=== PATIENT | female | born 1965 | race Asian ===

== ENCOUNTER 2020-01-15 13:45 | Outpatient (CLI) | payer OTHER, SELFPAY ==
--- NOTE | ~2020-01-15 | XR_ITS ---
EXAMINATION: XR shoulder RT min 2V DATE: 01/15/2020 14:27 INDICATION: Right shoulder pain. TECHNIQUE: 5 views of right shoulder were obtained. COMPARISON: None. FINDINGS: Bone alignment is normal. No fracture. The glenohumeral joint is normal. There is mild acro mioclavicular joint osteoarthritis. IMPRESSION: 1. Mild right acromioclavicular joint osteoarthritis. Reviewed, dictated and finalized at location A.
--- NOTE | 2020-01-15 13:47 | ECG_ITS ---
Measurements Intervals [place] Rate: 79 P: 70 [place]: 158 QRS: 75 QRSD: 95 T: 58 QT: 370 QTc: 424 Interpretive Statements SINUS RHYTHM BASELINE WANDER- I, II, III, AVF, V1 NORMAL ECG Electronically Signed On 01-15-2020 14:20:12 CDT by Noah Samaniego D.O.
[2020-01-15 14:46] LABS: Thyroid Stimulating Hormone 1.21 uIU/mL (0.36-3.74)
== END 2020-01-15 13:46 | disposition home or self-care (01) ==
LOC: CHSCARD 13:47
PROVIDERS: PCP Nurse Practitioner Family; Visit Provider Nurse Practitioner Family
DX: R07.89 Other chest pain (principal); M25.511 Pain in right shoulder; E03.9 Hypothyroidism, unspecified
CPT/HCPCS: 36415; 73030; 84443; 93005

== ENCOUNTER 2020-01-19 08:37 | Outpatient (CLI) | payer OTHER, SELFPAY ==
--- NOTE | ~2020-01-19 | US_ITS ---
EXAMINATION: US retroperitoneal duplex ltd DATE: 01/19/2020 09:12 INDICATION: Right kidney mass. TECHNIQUE: Multiple grayscale, color Doppler, and pulsed Doppler images of the kidneys and renal aissatou juanjo were obtained. COMPARISON: Ultrasound 03/06/2019, CT abdomen and pelvis 06/19/2015 FINDINGS: There is a 2.0 cm heterogeneously hypoechoic mass in upper pole of right kidney. There is a 9.[address] in the liver. The aorta peak systolic velocity is 89 cm/s. The right renal artery peak systolic ve locity is 85 cm/s in the proximal segment, 122 cm/s in the mid segment, and 63 cm/s in the distal seg ment. The left renal artery peak systolic velocity is 107 cm/s in the proximal segment, 82 cm/s in th e mid segment, and 77 cm/s in the distal segment. IMPRESSION: 1. 2.0 cm right kidney mass, stable from 03/06/2019. A biopsy at [facility] was benign according to the patient's records, but I do not have the original pathology report. 2. No Doppler evidence of renal artery stenosis. Reviewed, dictated and finalized at location B. IMPRESSION: 1. 2.0 cm right kidney mass, stable from 03/06/2019. A biopsy at [facility] was benign according to the patient's records, but I do not have the original pathology report. 2. No Doppler evidence of renal artery stenosis.
== END 2020-01-19 08:38 | disposition home or self-care (01) ==
LOC: CHSIMG 08:39
PROVIDERS: PCP Nurse Practitioner Family; Visit Provider Nurse Practitioner Family
DX: N28.89 Other specified disorders of kidney and ureter (principal)
CPT/HCPCS: 93976

== ENCOUNTER 2020-01-25 09:51 | Outpatient (CLI) | payer OTHER, SELFPAY ==
--- NOTE | ~2020-01-25 | MMUS_ITS ---
EXAMINATION: MM screen RT diag LT w mika, US breast LT limited HISTORY: Palpable left breast abnormality TECHNIQUE: Additional 3-D tomosynthesis images of the left breast were performed and synthetic 2-D im ages were generated. Screening right mammogram. Bilateral implant displaced views. CAD analysis was s ubmitted and interpreted. High resolution left breast ultrasound was performed. COMPARISON: 08/14/2018 BREAST PARENCHYMAL COMPOSITION: Breast composed of scattered areas of fibroglandular density. FINDINGS: MAMMOGRAPHIC FINDINGS: There are no suspicious masses, calcifications or architectural distortion in either breast to sugges t malignancy. There are bilateral subpectoral saline implants. ULTRASOUND: Left breast ultrasound: Normal heterogeneous echotexture without focal solid or cystic mass. IMPRESSION: 1. No mammographic or sonographic evidence for malignancy. 2. Routine yearly screening mammogram and regular clinical breast examination are recommended. BI-RADS Category 1: Negative Reviewed, dictated and finalized at location A. IMPRESSION: 1. No mammographic or sonographic evidence for malignancy. 2. Routine yearly screening mammogram and regular clinical breast examination a re recommended. BI-RADS Category 1: Negative
== END 2020-01-25 09:52 | disposition home or self-care (01) ==
PROVIDERS: PCP Family Medicine; Visit Provider Family Medicine
DX: N63.20 Unspecified lump in the left breast, unspecified quadrant (principal); Z12.31 Encounter for screening mammogram for malignant neoplasm of breast
CPT/HCPCS: 76642; 77063; 77065; 77067

== ENCOUNTER 2020-10-26 14:02 | Outpatient (CLI) | payer OTHER, SELFPAY ==
[2020-10-26 14:29] LABS: Hemoglobin A1C 5.8 % (<5.7)
[2020-10-26 15:30] LABS: Thyroid Stimulating Hormone Reflex 13.08 u/IU/mL (0.36-3.74)
[2020-10-26 16:50] LABS: Free T4 Free Thyroxine Reflex 0.83 ng/dL (0.76-1.46)
== END 2020-10-26 14:03 | disposition home or self-care (01) ==
LOC: CHSLAB 14:04
PROVIDERS: PCP Family Medicine; Visit Provider Family Medicine
DX: E03.9 Hypothyroidism, unspecified (principal); R73.03 Prediabetes
CPT/HCPCS: 36415; 83036; 84439; 84443

== ENCOUNTER 2021-05-08 12:46 | Outpatient (CLI) | payer OTHER, SELFPAY ==
[2021-05-08 13:59] LABS: Thyroid Stimulating Hormone Reflex 1.51 u/IU/mL (0.36-3.74)
== END 2021-05-08 12:47 | disposition home or self-care (01) ==
LOC: CHSLAB 12:49
PROVIDERS: PCP Family Medicine; Visit Provider Family Medicine
DX: E11.9 Type 2 diabetes mellitus without complications (principal)
CPT/HCPCS: 36415; 84443

== ENCOUNTER 2021-08-18 10:26 | Outpatient (CLI) | payer OTHER, SELFPAY ==
--- NOTE | ~2021-08-18 | US_ITS ---
EXAMINATION: US retroperitoneal comp DATE: 08/18/2021 10:57 INDICATION: Disorders of kidney and ureter TECHNIQUE: Multiple ultrasound grayscale images of the kidneys were obtained. COMPARISON: 03/06/2019 FINDINGS: The right kidney measures 9.6 x 4.3 x 4.0 cm. The left kidney measures 10.4 x 4.6 x 4.6 cm. The kidne ys demonstrate normal echogenicity. 2.3 x 1.4 x 1.4 cm mixed very hypoechoic and centrally hyperechoi c lesion at the upper pole of the right kidney which is decreased in size since 09/24/2016 at which [place] the lesion measured 3.3 x 2.8 cm. There is no hydronephrosis in either kidney. No stones identifie d. The bladder appears normal but is partially decompressed which limits evaluation. IMPRESSION: 1. No hydronephrosis. 2. Indeterminate 2.3 cm lesion at the upper pole of the right kidney which is concerning for neoplasm but which is decreased in size from 3.3 cm on 09/24/2016 and with reported prior benign biopsy perform ed Hospital. Correlate with pathology from reported prior biopsy. Reviewed, dictated and finalized at location A. IMPRESSION: 1. No hydronephrosis. 2. Indeterminate 2.3 cm lesion at the upper pole of the right kidney which is c oncerning for neoplasm but which is decreased in size from 3.3 cm on 09/24/2016 a nd with reported prior benign biopsy performed Hospital. Correlate with patholo gy from reported prior biopsy.
== END 2021-08-18 10:27 | disposition home or self-care (01) ==
LOC: CHSIMG 10:27
PROVIDERS: PCP Family Medicine; Visit Provider Family Medicine
DX: N28.89 Other specified disorders of kidney and ureter (principal)
CPT/HCPCS: 76770

== ENCOUNTER 2021-08-23 14:23 | Outpatient (RCR) | payer OTHER, SELFPAY ==
--- NOTE | 2021-08-23 15:33 | PTOPEVAL ---
Thank you for referring Vicki Ha to [facility].? The patient is scheduled to be seen for therapy? ____x/week for ___ weeks. Please review, sign, date and return this plan of care PEDRO LUIS. I agree with and certify that the following plan of care is medically necessary. Referring Physician Date Admitting Provider: Attending Provider: Luc Conde DO Referring Provider: *PT Outpatient Evaluation Start: 08/23/21 14:33 Freq: Status: Active Protocol: Document 08/23/21 14:33 J[facility] (Rec: 08/23/21 15:33 [facility] [id number]) Therapy Assessment Status Assessment Status Assessment Status Evaluation Evaluation Information Problem Diagnosis R shoulder pain Onset 08/16/21 Additional Evaluation Detail quick dash = 70% functionally declined Subjective Information patient reports she has been Query Text:As Reported By Patient/ having pain in the R shoulder Family for years. she reports the pain in the R shoulder has been getting worse for the past 5 months. she reports she has increased pain in the front of the shoulder and down to the fingers (all fingers). she reports no remarkable injury. she reports she has pain with using a mouse, lifting, and leaning against it in a chair arm. 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 she reports her pain is also worst at night. Prior Level of Function Comments Additional Prior Level of Function patient reports her R shoulder Comments has been getting progressively worse for the past 5 months. she reports she used to paint. Pain Assessment Timing of Pain Assessment Timing of Pain Assessment Assessment Pain Scale Pain Scale Used Numeric (1 - 10) Self Report Pain Assessment Right Shoulder(s) Reported Pain Level 5 Greatest Pain Intensity 10 Pain Score Pain Score 5: Self Report Interventions Used Interventions Used By Clinicians Heat,Medication,Rest Upper Extremity Range of Motion General Upper Extremity Range of Motion Gross Upper Extremity Range of Motion L shoulder arom flex = 160 Comments degrees L shoulder arom ER = 95 degrees L shoulder arom IR = 80
--- NOTE | 2021-09-04 16:45 | PTOPEVAL ---
Thank you for referring Vicki Ha to [facility].? The patient is scheduled to be seen for therapy? __2__x/week for 6 visits. Please review, sign, date and return this plan of care PEDRO LUIS. I agree with and certify that the following plan of care is medically necessary. Referring Physician Date Admitting Provider: Attending Provider: Luc Conde DO Referring Provider: *PT Outpatient Evaluation Start: 08/23/21 14:33 Freq: Status: Active Protocol: Document 09/04/21 14:53 [facility] (Rec: 09/04/21 16:45 [facility] [email or web address]) Therapy Assessment Status Assessment Status Assessment Status Evaluation Evaluation Information Problem Diagnosis right shoulder pain Onset 08/16/21 Subjective Information Pt. reports that she continues Query Text:As Reported By Patient/ to have the same intensity of Family right shoulder pain. she reports that pain is still located in the front of the right shoulder. She notices popping. She still has pain with reaching across the body and behind her back. She states that pain will wake her at night. She reports she will follow up with her doctor today regarding getting a shot to decrease pain. Pain Assessment Pain Scale Pain Scale Used Numeric (1 - 10) Self Report Pain Assessment Right Shoulder(s) Reported Pain Level 5 Pain Description Aching Greatest Pain Intensity 9 Pain Score Pain Score 5: Self Report Interventions Used Interventions Used By Clinicians Electrical Stimulation, Exercise,Heat Upper Extremity Range of Motion General Upper Extremity Range of Motion Gross Upper Extremity Range of Motion -right shoulder flexion AROM Comments 155 degrees -right shoulder ER AROM 94 degrees -right shoulder IR AROM 50 degrees Upper Extremity Muscle Strength Testing General Upper Extremity Strength Gross Upper Extremity Strength Comments -right shoulder flexion 4-/5 -right shoulder abduction 3+/5 -right shoulder ER 4+/5 Palpation Assessment Palpation Palpation Cointinue to note tenderness to palpation at the bicipital groove on the right. Special Tests-Upper Extremity Shoulder Special Tests Empty Can (supraspin
--- NOTE | 2021-09-28 14:53 | PTOPEVAL ---
Thank you for referring Vicki Ha to [facility].? The patient is scheduled to be seen for therapy? ____x/week for ___ weeks. Please review, sign, date and return this plan of care PEDRO LUIS. I agree with and certify that the following plan of care is medically necessary. Referring Physician Date Admitting Provider: Attending Provider: Luc Conde DO Referring Provider: *PT Outpatient Evaluation Start: 08/23/21 14:33 Freq: Status: Active Protocol: Document 09/28/21 14:00 [facility] (Rec: 09/28/21 14:52 [facility] [email or web address]) Therapy Assessment Status Assessment Status Assessment Status Evaluation Pain Assessment Timing of Pain Assessment Timing of Pain Assessment Assessment Pain Scale Pain Scale Used Numeric (1 - 10) Self Report Pain Assessment Right Shoulder(s) Reported Pain Level 1 Greatest Pain Intensity 1 Pain Score Pain Score 1: Self Report Interventions Used Interventions Used By Clinicians Activity or ADL's,Education, Electrical Stimulation, Exercise,Heat,Manual Therapy Techniques Upper Extremity Range of Motion General Upper Extremity Range of Motion Gross Upper Extremity Range of Motion -right shoulder flexion AROM Comments 160 degrees -right shoulder ER AROM 90 degrees -right shoulder IR AROM 75 degrees Upper Extremity Muscle Strength Testing General Upper Extremity Strength Gross Upper Extremity Strength Comments -right shoulder flexion 4+/5 -right shoulder IR 5/5 -right shoulder ER 4+/5 patient able to functionally lift 5lbs overhead to tall shelf reach without pain Palpation Assessment Palpation Palpation crepitus in the R shoulder with movement of the shoulder into all ranges General Exercise General Exercises Exercise Description Ther ex Query Text:Record Sets, Reps, -passive stretching into Resistance, and Position shoulder flexion, and IR x 5 minutes -bilateral shoulder extension with scapular depression black x 20 -bilateral shoulder rows black x 20 -resisted right shoulder IR/ER black x 30 each -bilateral shoulder flex and scap 2lb a
== END 2021-09-28 15:10 | disposition home or self-care (01) ==
LOC: CHSPT 14:23
PROVIDERS: PCP Family Medicine; Visit Provider Family Medicine
DX: M25.511 Pain in right shoulder (principal)
CPT/HCPCS: 97014; 97110; 97140; 97161; G0283

== ENCOUNTER 2021-09-04 15:52 | Outpatient (CLI) | payer OTHER, SELFPAY ==
[2021-09-04 16:59] LABS: Thyroid Stimulating Hormone Reflex 0.13 u/IU/mL (0.36-3.74)
[2021-09-04 17:33] LABS: Free T4 Free Thyroxine Reflex 1.37 ng/dL (0.76-1.46)
== END 2021-09-04 15:53 | disposition home or self-care (01) ==
LOC: CHSLAB 15:54
PROVIDERS: PCP Family Medicine; Visit Provider Family Medicine
DX: E03.9 Hypothyroidism, unspecified (principal)
CPT/HCPCS: 36415; 84439; 84443

== ENCOUNTER 2022-03-18 11:31 | Emergency (ER) | payer OTHER, SELFPAY ==
[2022-03-18 11:35] VITALS: BP 125/82; PULSE 81; RESP 16; TEMP 36.3; O2SAT 100
[2022-03-18 11:40] VITALS: BP 125/82; PULSE 81; RESP 16; TEMP 36.3; O2SAT 100
--- NOTE | 2022-03-18 12:20 | ED.DENTAL ---
HPI - Dental/Oral General Chief complaint: Dental/Oral Stated complaint: left side top and bottom mouth and tooth pain Time Seen by Provider: 03/18/22 12:18 Source: patient Mode of arrival: ambulatory Limitations: no limitations History of Present Illness HPI Narrative: 56-YEAR-OLD FEMALE COMPLAINS LEFT UPPER GUM AND SWELLING AND TOOTH PAIN FOR THE PAST COUPLE WEEKS OR MONTHS ON AND OFF SINCE SHE HAD A TOOTH CLEANING OUT HER DENTIST. SHE LAST SAW HER DENTIST LAST WEEK. SHE TRIED TO GET SOME ANTIBIOTICS FROM HIM BUT ONLY GAVE HER WAS IBUPROFEN. COMPLAINS OF PERSISTENT PAIN. MD Complaint: tooth pain Related Data Allergies Allergy/AdvReac Type Severity Reaction Status Date / Time ketorolac [From Toradol] Allergy Severe abdominal Verified 03/18/22 12:05 pain iodine Allergy Unknown Unknown Verified 03/18/22 12:05 Review of Systems Review of Systems: All systems reviewed & are unremarkable except as noted in HPI and below Constitutional: Constitutional: Reports no additional constitutional complaints Eyes: Eyes: Reports no additional eye complaints ENT: Reports system reviewed and no additional complaints, except as documented and Reports sore throat Cardiovascular: Cardiovascular: Reports no additional cardiovascular complaints Respiratory: Respiratory: Reports no additional respiratory complaints Gastrointestinal: Gastrointestinal: Reports no additional gastrointestinal complaints Musculoskeletal: Musculoskeletal: Reports no additional musculoskeletal complaints Neurologic: Reports system reviewed and no additional complaints, except as documented and Reports headache(s) PMFSH Past Medical History Medical History Asthma Carpal tunnel syndrome RIA (generalized anxiety disorder) GERD (gastroesophageal reflux disease) Hypothyroidism Migraine Nicotine dependence Thyroid nodule Surgical History Surgical History History of cholecystectomy Family History Family History Mother Diabetes mellitus Other Depression Family history of coronary artery disease Family history of migraine headaches Family history of type 2 diabetes mellitus Hypertension Social History Social History Smoking packs per day: 0.5 Smoking cigarettes per day: 10.0 Years smoked: 25 Smoking pack-years: 12.50 Smoking status: Current every day smoker Tobacco type: cigarettes Additional living arrangements comments: . Gender identity (if verbalized by the patient): Female Exam Narrative: PATIENT IS A 56-YEAR-OLD FEMALE APPEARS IN NO APPARENT DISTRESS EYES CONJUNCTIVA PINK SCLERA NONICTERIC OROPHARYNX SHE HAS GOT PARTIAL UPPER DENTURES AND SWELLING OVER LEFT UPPER GUMS WITH TENDERNESS OROPHARYNX IS OTHERWISE CLEAR. LUNGS ARE CLEAR HEART IS REGULAR RATE AND RHYTHM WITHOUT MURMURS GALLOPS OR RUBS EARS TMS ARE NORMAL NECK IS SUPPLE NO LYMPHADENOPATHY PATIENT IS ALERT AND ORIENTED MOTOR AND SENSORY GROSSLY INTACT APPEARS WELL NOURISHED Const: General: healthy appearing Nutritional Appearance: well nourished Orientation/consciousness: patient oriented x3 Limitations: no limitations Course Course Emergency Course: EVALUATION WAS DISCUSSED AND PLAN WAS DISCUSSED ALL QUESTIONS WERE ASKED AND ANSWERED. Vital Signs Vital signs: Vital Signs Temperature 36.3 C L 03/18/22 11:35 Pulse Rate 81 03/18/22 11:35 Respiratory Rate 16 03/18/22 11:35 Blood Pressure 125/82 03/18/22 11:35 Pulse Oximetry 100 03/18/22 11:35 Oxygen Delivery Room Air 03/18/22 11:35 Temperature 36.3 C L 03/18/22 11:40 Pulse Rate 81 03/18/22 11:40 Respiratory Rate 16 03/18/22 11:40 Blood Pressure 125/82 03/18/22 11:40 Pulse Oximetry 100 03/18/22 11:40 Oxygen Delivery Room Air
== END 2022-03-18 12:35 | disposition home or self-care (01) ==
PROVIDERS: Emergency Provider Emergency Medicine; PCP Family Medicine
DX: K04.7 Periapical abscess without sinus (principal)
CPT/HCPCS: 99283

== ENCOUNTER 2023-03-19 15:24 | Outpatient (CLI) | payer OTHER, SELFPAY ==
[2023-03-19 15:45] LABS: Basophils Absolute Auto 0.08 K/mm3 (0.00-0.10); Eosinophils Absolute Auto 0.57 K/mm3 (0.02-0.50); Eosinophils Percent Auto 7.5 % (1.0-6.0); Hematocrit 42.8 % (35.0-49.0); Hemoglobin 13.9 g/dL (12.0-15.0); Immature Granulocyte Absolute 0.03 K/mm3 (0.00-0.00); Immature Granulocyte Percent A 0.4 % (0.0-0.0); Lymphocytes Absolute Auto 2.27 K/mm3 (1.10-4.50); Lymphocytes Percent Auto 29.7 % (18.0-42.0); Mean Corpuscular HGB Conc 32.5 g/dL (32.0-36.0); Mean Corpuscular Hemoglobin 28.8 pg (27.0-31.0); Mean Corpuscular Volume 88.6 fL (78.0-102.0); Mean Platelet Volume 10.3 fl (9.2-11.8); Monocytes Absolute Auto 0.59 K/mm3 (0.10-0.90); Monocytes Percent Auto 7.7 % (2.0-11.0); Neutrophils Absolute Auto 4.1 K/mm3 (1.7-7.2); Neutrophils Percent Auto 53.7 % (50.0-70.0); Platelet Count Result 246 K/mm3 (150-420); Red Blood Count 4.83 M/mm3 (4.20-5.40); Red Cell Distribution Width 12.8 % (11.6-14.4); White Blood Count 7.6 K/mm3 (4.8-10.8)
[2023-03-19 15:55] LABS: Hemoglobin A1C 6.2 % (<5.7)
[2023-03-19 16:20] LABS: Alanine Aminotransferase 24 U/L (14-59); Albumin Level 3.4 g/dL (3.4-5.0); Alkaline Phosphatase 95 U/L (46-116); Anion Gap 8 mmol/L (8-16); Aspartate Amino Transferase 15 U/L (15-37); Bilirubin,Total 0.5 mg/dL (0.00-1.00); Blood Urea Nitrogen 11 mg/dL (7-18); Calcium 8.7 mg/dL (8.5-10.1); Carbon Dioxide 29 mmol/L (21-32); Chloride 108 mmol/L (98-108); Estimated Glomerular Filt Rate > 60; Glucose 96 mg/dL (70-99); Osmolality Calculated 299 mOsm/kg (285-295); Potassium 3.6 mmol/L (3.5-5.1); Sodium 145 mmol/L (136-145); Total Protein 6.4 g/dL (6.4-8.2)
[2023-03-19 16:21] LABS: Thyroid Stimulating Hormone Reflex 0.22 u/IU/mL (0.36-3.74)
[2023-03-19 16:57] LABS: Free T4 Free Thyroxine Reflex 1.21 ng/dL (0.76-1.46)
== END 2023-03-19 15:25 | disposition home or self-care (01) ==
PROVIDERS: PCP Family Medicine; Visit Provider Family Medicine
DX: E03.9 Hypothyroidism, unspecified (principal); E11.9 Type 2 diabetes mellitus without complications; K04.7 Periapical abscess without sinus
CPT/HCPCS: 36415; 80053; 83036; 84439; 84443; 85025

== ENCOUNTER 2023-04-16 12:53 | Outpatient (CLI) | payer OTHER, SELFPAY | END 2023-04-16 12:54 | disposition home or self-care (01) | LOC: ANHAUDIO 12:54 | PROVIDERS: PCP Family Medicine; Visit Provider Family Medicine | DX: H90.3 Sensorineural hearing loss, bilateral (principal) | CPT/HCPCS: 92557; 92567 ==

== ENCOUNTER 2023-07-17 12:25 | Outpatient (CLI) | payer OTHER, SELFPAY ==
--- NOTE | ~2023-07-17 | MM_ITS ---
EXAMINATION: MM scrn mike implant BI w mika HISTORY: Screening mammogram TECHNIQUE: Craniocaudal and mediolateral oblique 3-D tomosynthesis images with implant displacement a nd synthetic 2-D images were generated. Craniocaudal and mediolateral oblique views of the breasts wi thout implant displacement were obtained using full field digital mammography. CAD analysis was submi tted and interpreted. COMPARISON: Comparison to multiple prior studies sequentially, with oldest reviewed study dated 08/14. BREAST PARENCHYMAL COMPOSITION: Not dense: There are scattered areas of fibroglandular density. FINDINGS: There are new asymmetries centrally in the right breast and laterally in the left breast, b oth on CC view. There are no suspicious calcifications or architectural distortion. IMPRESSION: 1. Bilateral breast asymmetries. 2. Additional mammographic views and possible breast ultrasound are recommended. BI-RADS Category 0: Incomplete: Needs additional imaging evaluation. Reviewed, dictated and finalized at location A. ER TENDER IMPRESSION: 1. Bilateral breast asymmetries. 2. Additional mammographic views and possible breast ultrasound are recommended . BI-RADS Category 0: Incomplete: Needs additional imaging evaluation.
--- NOTE | ~2023-07-17 | US_ITS ---
EXAMINATION: US retroperitoneal comp DATE: 07/17/2023 13:15 INDICATION: Disorder of kidney and ureter. TECHNIQUE: Multiple ultrasound grayscale images of the kidneys were obtained. COMPARISON: 08/18/2021 and 03/06/2019 FINDINGS: The right kidney measures 9.3 x 4.1 x 4.1 cm. The left kidney measures 10.0 x 3.8 x 5.2 cm. The kidne ys demonstrate normal echogenicity. No significant interval change in size or appearance of a 2.0 x 1 .5 x 1.4 cm hypoechoic lesion at the upper pole of the right kidney. There is no hydronephrosis in ei ther kidney. No stones identified. The bladder is incompletely distended which limits evaluation. IMPRESSION: 1. No interval change since 03/06/2019 in a nonspecific 2.0 cm hypoechoic lesion at the upper pole t he right kidney with reported prior benign biopsy performed at [facility]. Correlate with pathol ogy from reported prior biopsy. 2. Otherwise normal kidneys with no hydronephrosis. Reviewed, dictated and finalized at location A. WEAVER IMPRESSION: 1. No interval change since 03/06/2019 in a nonspecific 2.0 cm hypoechoic lesi on at the upper pole the right kidney with reported prior benign biopsy perform ed at [facility]. Correlate with pathology from reported prior biopsy. 2. Otherwise normal kidneys with no hydronephrosis.
[2023-07-17 12:41] LABS: Basophils Absolute Auto 0.08 K/mm3 (0.00-0.10); Eosinophils Absolute Auto 0.25 K/mm3 (0.02-0.50); Eosinophils Percent Auto 3.2 % (1.0-6.0); Hematocrit 43.5 % (35.0-49.0); Hemoglobin 14.9 g/dL (12.0-15.0); Immature Granulocyte Absolute 0.02 K/mm3 (0.00-0.00); Immature Granulocyte Percent A 0.3 % (0.0-0.0); Lymphocytes Absolute Auto 2.24 K/mm3 (1.10-4.50); Lymphocytes Percent Auto 29.1 % (18.0-42.0); Mean Corpuscular HGB Conc 34.3 g/dL (32.0-36.0); Mean Corpuscular Volume 87.7 fL (78.0-102.0); Mean Platelet Volume 10.1 fl (9.2-11.8); Monocytes Absolute Auto 0.49 K/mm3 (0.10-0.90); Monocytes Percent Auto 6.4 % (2.0-11.0); Neutrophils Absolute Auto 4.6 K/mm3 (1.7-7.2); Platelet Count Result 212 K/mm3 (150-420); Red Blood Count 4.96 M/mm3 (4.20-5.40); Red Cell Distribution Width 12.6 % (11.6-14.4); White Blood Count 7.7 K/mm3 (4.8-10.8)
[2023-07-17 13:19] LABS: Alanine Aminotransferase 49 U/L (14-59); Albumin Level 3.6 g/dL (3.4-5.0); Alkaline Phosphatase 88 U/L (46-116); Anion Gap 12 mmol/L (8-16); Aspartate Amino Transferase 27 U/L (15-37); Bilirubin,Total 0.7 mg/dL (0.00-1.00); Blood Urea Nitrogen 13 mg/dL (7-18); Calcium 8.7 mg/dL (8.5-10.1); Carbon Dioxide 27 mmol/L (21-32); Chloride 103 mmol/L (98-108); Estimated Glomerular Filt Rate > 60; Glucose 168 mg/dL (70-99); Osmolality Calculated 298 mOsm/kg (285-295); Sodium 142 mmol/L (136-145); Total Protein 7.1 g/dL (6.4-8.2)
[2023-07-17 13:40] LABS: Free T4 Free Thyroxine Reflex 1.58 ng/dL (0.76-1.46)
== END 2023-07-17 12:26 | disposition home or self-care (01) ==
LOC: CHSIMG 12:26
PROVIDERS: PCP Family Medicine; Visit Provider Family Medicine
DX: E03.9 Hypothyroidism, unspecified (principal); E11.9 Type 2 diabetes mellitus without complications; N28.9 Disorder of kidney and ureter, unspecified; Z12.31 Encounter for screening mammogram for malignant neoplasm of breast; R92.8 Other abnormal and inconclusive findings on diagnostic imaging of breast
CPT/HCPCS: 36415; 76770; 77063; 77067; 80053; 83036; 84439; 84443; 85025

== ENCOUNTER 2023-08-19 07:32 | Outpatient (CLI) | payer OTHER, SELFPAY ==
--- NOTE | 2023-08-19 07:37 | EST_ITS ---
Patient Info Name: Vicki Ha Age: 58 years : 1965 Gender: Female Ht: 63 in Wt: 134 lbs BSA: 1.65 m2 HR: 74 bpm BP: 147 / 2 mmHg Heart Rhythm: Sinus Rhythm Technical Quality: Good Exam Date: 08/19/2023 8:50 AM Exam Location: Echo Lab Patient Status: Outpatient Admit Date: 08/19/2023 Staff Ordering Physician: Luc Conde DO Attending Provider: Luc Conde DO Exam Type: CA stress test treadmill w NM Study Info A treadmill exercise stress test was performed. Summary 1. 1. Negative Robert exercise stress test for ischemic ST changes by ECG criteria. 2. 2. Good functional capacity, achieving 9.8 METs of workload. 3. 3. Baseline hypertension. 4. 4. Appropriate HR response to exercise. 5. 5. Appropriate HR recovery at 1 minute post exercise. 6. 6. Nuclear scan to follow and will be reported separately. Please correlate with it. 7. 7. Patient informed of the above results. Protocol: Robert Stress ECG Details Stage: REST Duration (min): 2 min : 11 sec Speed (mph): 0.0 Grade (%): 0 HR (bpm): 74 SBP (mmHg): 147 DBP (mmHg): 92 METS: --- Stage: REST Duration (min): 15 min : 59 sec Speed (mph): 0.0 Grade (%): 0 HR (bpm): 87 SBP (mmHg): 147 DBP (mmHg): 92 METS: --- Stage: STAGE 1 Duration (min): 1 min : 0 sec Speed (mph): 1.7 Grade (%): 10 HR (bpm): 103 SBP (mmHg): 147 DBP (mmHg): 92 METS: --- Stage: STAGE 1 Duration (min): 2 min : 0 sec Speed (mph): 1.7 Grade (%): 10 HR (bpm): 112 SBP (mmHg): 147 DBP (mmHg): 92 METS: --- Stage: STAGE 1 Duration (min): 3 min : 0 sec Speed (mph): 1.7 Grade (%): 10 HR (bpm): 117 SBP (mmHg): 187 DBP (mmHg): 91 METS: --- Stage: STAGE 2 Duration (min): 1 min : 0 sec Speed (mph): 2.5 Grade (%): 12 HR (bpm): 124 SBP (mmHg): 187 DBP (mmHg): 91 METS: --- Stage: STAGE 2 Duration (min): 2 min : 0 sec Speed (mph): 2.5 Grade (%): 12 HR (bpm): 126 SBP (mmHg): 187 DBP (mmHg): 91 METS: --- Stage: STAGE 2 Duration (min): 3 min : 0 sec Speed (mph): 2.5 Grade (%): 12 HR (bpm): 136 SBP (mmHg): 187 DBP (mmHg): 91 METS: --- Stage: STAGE 3 Duration (min): 1 min : 0 sec Speed (mph): 3.4 Grade (%): 14 HR (bpm): 144 SBP (mmHg): 187 DBP (mmHg): 91 METS: --- Stage: STAGE 3 Duration (min): 1 min : 30 sec Speed (mph): 3.4 Grade (%): 14 HR (bpm): 151 SBP (mmHg): 187 DBP (mmHg): 91 METS: --- Stage: RECOVERY Duration (min): 0 min : 29 sec Speed (mph): 0.0 Grade (%): 0 HR (bpm): 145 SBP (mmHg): 187 DBP (mmHg): 91 METS: --- Stage: RECOVERY Duration (min): 1 min : 29 sec Speed (mph): 0.0 Grade (%): 0 HR (bpm): 119 SBP (mmHg): 187 DBP (mmHg): 91 METS: --- Stage: RECOVERY Duration (min): 2 min : 29 sec Speed (mph): 0.0 Grade (%): 0 HR (bpm): 108 SBP (mmHg): 187 DBP (mmHg): 91 METS:
--- NOTE | 2023-08-19 14:47 | WPDCARIOSTRE ---
Nuclear Stress Test INDICATIONS Indications: Chest pain PROCEDURE Procedure Performed: Myocardial Perf Spect-Multi Procedure: Patient exercised on a Robert protocol and at peak exercise was injected with 31.1 mCi of cardiolyte. Multiple tomographic images were obtained. These are of good quality. There is no perfusion defect with stress imaging. A separate resting images were obtained after patient was injected with 10.0 mCi of cardiolyte. Multiple tomographic images were obtained. These are of good quality. There is no perfusion defect with rest imaging. CONCLUSION Conclusion: 1. Normal myocardial perfusion imaging demonstrating no perfusion defects with stress or rest imaging. 2. No reversible ischemia. 3. Left ventriculogram demonstrates normal measured ejection fraction of 77% with no wall motion abnormalities. 4. TID score 0.9 is normal.
== END 2023-08-19 07:33 | disposition home or self-care (01) ==
LOC: CHSCARD 07:34
PROVIDERS: PCP Family Medicine; Visit Provider Family Medicine
DX: R07.9 Chest pain, unspecified (principal)
CPT/HCPCS: 78452; 93017; A9502

== ENCOUNTER 2023-08-20 08:51 | Outpatient (CLI) | payer OTHER, SELFPAY ==
--- NOTE | ~2023-08-20 | MM_ITS ---
. EXAMINATION: MM diag mike implant BI w mika HISTORY: Bilateral mammographic asymmetries reported on July 17, 2023 screening implant mammogram TECHNIQUE: Additional 3-D tomosynthesis images of both breasts were performed and synthetic 2-D image s were generated. Rolled medial and lateral collateral craniocaudal implant displaced views. CAD anal ysis was submitted and interpreted. COMPARISON: July 17, 2023, August 14, 2018bilateral screening mammogram examinations FINDINGS: No suspicious mass or architectural distortion of either breast is evident. IMPRESSION: 1. No mammographic evidence of malignancy 2. Routine mammographic screening is recommended BI-RADS Category 1: Negative Reviewed, dictated and finalized at location A.
== END 2023-08-20 08:52 | disposition home or self-care (01) ==
LOC: CHSIMG 08:52
PROVIDERS: PCP Family Medicine; Visit Provider Family Medicine
DX: R92.8 Other abnormal and inconclusive findings on diagnostic imaging of breast (principal)
CPT/HCPCS: 77062; 77066; G0279

== ENCOUNTER 2023-10-24 08:54 | Outpatient (CLI) | payer OTHER, SELFPAY ==
[2023-10-24 09:37] LABS: Cholesterol 226 mg/dL (0-200); HDL Direct 50 mg/dL (40-60); LDL Cholesterol Calculated 152 mg/dL (<130); Triglycerides 121 mg/dL (0-150)
== END 2023-10-24 08:55 | disposition home or self-care (01) ==
LOC: CHSLAB 08:56
PROVIDERS: PCP Internal Medicine Cardiovascular Disease; Visit Provider Internal Medicine Cardiovascular Disease
DX: E78.5 Hyperlipidemia, unspecified (principal)
CPT/HCPCS: 36415; 80061

== ENCOUNTER 2024-01-30 12:39 | Outpatient (CLI) | payer OTHER, SELFPAY ==
--- NOTE | 2024-02-18 20:40 | WPDPFTINT ---
PFT Procedure Performed PFT Procedure Performed Spirometry with Pre/Post Bronchodilator Plethysmography (Lung Vol) Diffusing Cap (DLCO) Flow Vol Loop PFT Interpretation DOS: 01/30/2024 REQUESTING: Dr Luc Conde REASON FOR TESTING: COPD PULMONARY FUNCTION TESTS Results are reliable and reproducible. Spirometry: The pre-bronchodilator FEV1 is 1.46 L, 63%. The pre-bronchodilator FVC is 2.17 L, 76%. The FEV1/FVC ratio is 67%. After bronchodilator, the FEV1 is 1.61 L, 70%, +11%. The FVC is 2.24 L, 79%, +3%. The FEV1/FVC ratio is 72% after bronchodilator administration. The FEF 25-75% is 0.71 L, 28% and increases to 1.06 L, 41%, a 50% increase which is significant. Lung volumes: The total lung capacity is 3.90 L, 83%. The residual volume is 1.65 L, 94%. The RV/TLC is 42%. airway resistance is increased Diffusion: DLCO is 14.9, 79%. The DLCO/VA is 5.07, 131%. Flow volume loop: The flow volume loop shows mild coving of the expiratory limb. IMPRESSION: This study shows a mild obstructive ventilatory impairment which is severe in the small airways, mild response to bronchodilator, normal lung volumes and normal diffusion. There are no prior studies to compare. Ladonna Dean MD
== END 2024-01-30 12:40 | disposition home or self-care (01) ==
PROVIDERS: PCP Family Medicine; Visit Provider Family Medicine
DX: J44.9 Chronic obstructive pulmonary disease, unspecified (principal); R94.2 Abnormal results of pulmonary function studies
CPT/HCPCS: 94060; 94726; 94729

== ENCOUNTER 2024-10-11 08:03 | Emergency (ER) | payer SELFPAY ==
[2024-10-11] VITALS (16 sets, daily range): BP systolic 134–167; BP diastolic 85–87; PULSE 57–67; RESP 8–17; TEMP 36.7; O2SAT 97–100
--- NOTE | ~2024-10-11 | XR_ITS ---
Portable chest x-ray Comparison: 12/08/2014 Clinical History: Neurologic symptoms Findings: Lungs are clear, without focal consolidation or pleural effusion. Cardiomediastinal silho uette is stable. Bones and soft tissues are unremarkable. Impression: Normal chest. Reviewed, dictated and finalized at [facility]. Impression: Normal chest.
--- OUTSIDE RECORDS SUMMARY | 2024-10-11 08:06 | XMS_ITS | Clinical Summary ---
Author Organization [facility] Address [address] [place] [address] Care Team Providers Care Disability Insurance Hearing Officer Name Role Phone Luc Conde DO Primary Care Provider [phone] Allergies Active Allergy Reactions Criticality Noted Date Comments Iodine Eyes Water & Itch 05/15/2024 edema Medications traZODone (DESYREL) 50 MG tablet Take 1 tablet (50 mg total) by mouth nightly at bedtime. Active FLUoxetine (PROZAC) 40 MG capsule Take 1 capsule (40 mg total) by mouth daily. Active famotidine (PEPCID) 40 MG tablet Take 1 tablet (40 mg total) by mouth daily. Active levothyroxine (SYNTHROID) 25 MCG tablet Take 1 tablet (25 mcg total) by mouth every morning. Active tiZANidine (ZANAFLEX) 4 MG tablet Take 1 tablet (4 mg total) by mouth every 6 (six) hours as needed (muscle relaxer). Active atorvastatin (LIPITOR) 20 MG tablet Take 1 tablet (20 mg total) by mouth nightly at bedtime. Active azelastine (ASTELIN) 0.1 % nasal spray 1 spray by Nasal route 2 (two) times daily. Use in each nostril as directed Active tiotropium (SPIRIVA RESPIMAT) 2.5 MCG/ACT inhaler (SPIRIVA RESPIMAT) Inhale 2 puffs into the lungs daily as needed (shortness of breath). Please provide assembled. Active Encounters Date Type Department Care Team Description 07/10/2024 11:59 PM MANAGER TRANSPORTATION Anesthesia Event [facility] [address] [place] [address] Carlota Guzmán CRNA from Last 3 Months Social History Tobacco Use Types Packs/Day Years Used Date Smoking Tobacco: Every Day Cigarettes 0.3 41.4 Started: 1983 Smokeless Tobacco: Never Tobacco Cessation:Ready to Q uit: Not Asked; Counseling Given: Not Answered Comments:Quits and restarts smoking off and on Alcohol Use Standard Drinks/Week Comments Never 0 (1 standard drink = 0.6 oz pur e alcohol) Comments No Sex and Gender Information Value Date Recorded Sex Assigned at Not on file Legal Sex Female 2:47 PM MANAGER TRANSPORTATION Gender Identity Not on file Sexual Orientation Not on file Last Filed Vital Signs Vital Sign Reading Time Taken Comments Blood Pressure 114/92 05/25/2024 1:53 PM MANAGER TRANSPORTATION Pulse 65 05/25/2024 1:53 PM MANAGER TRANSPORTATION Temperature 36.2 C (97.2 F) 05/25/2024 12:37 PM MANAGER TRANSPORTATION Respiratory Rate 18 05/25/2024 12:37 PM MANAGER TRANSPORTATION Oxygen Saturation 100% 05/25/2024 1:53 PM MANAGER TRANSPORTATION Inhaled Oxygen Concentration - - Weight 61.2 kg (135 lb) 07/09/2024 11:13 AM MANAGER TRANSPORTATION Height 160 cm (5' 3 ) 05/15/2024 12:18 PM MANAGER TRANSPORTATION Body Mass Index 23.91 05/15/2024 12:18 PM MANAGER TRANSPORTATION Plan of Treatment Health Maintenance Due Date Last Done Comments Cervical Cancer Screening Pa p Smear (Age 30 to 64) Every 3 Years 1964 Colorectal Cancer Screening Colonoscopy (10 Years) 1964 Annual Physical 1967 Hepatitis C 1982 DTaP, Tdap and Td Vaccines ( 1 - Tdap) 1983 Pneumococcal Vaccine: 50+ Ye ars (1 of 2 - PCV) 1983 Cervical Cancer Screening Pa p with HPV Testing (Age 30 to 64) Every 5 Years 1994 Cervical Cancer Screening with HPV 1994 Mammogram Screening 2004 Zoster Vaccines (1 of 2) 2014 COVID-19 Vaccine ( - 2023-2 5 season) 2024 RSV Immunization or 60+ Years (1 - 1-dose 75+ series) 2039 Meningococcal B Vaccine Aged Out No l onger eligible based on patient's age to complete this topic Meningococcal Vaccine Aged Out No adam ursula eligible based on patient's age to complete this topic RSV Immunizations Under 20 Months Aged Out No longer eligible based on patient's age to complete this topic Medical Devices Implanted Type Area Non Profit Director Device Identifier Shelf Expiration Date Model / Serial / Lot Clareon Iol Aspheric Uv Absorbing Iol Implanted:Qty: 1 on 05/25/2024 by Logan Barkley MD at [facility] Right: Eye 04/09/2027 / [id number] / Care Teams Disability Insurance Hearing Officer Relationship Specialty Start Date End Date Luc Conde DO [address] [place] [address] PCP - General FAMILY PRACTICE 05/25/24
--- OUTSIDE RECORDS SUMMARY | 2024-10-11 08:06 | XMS_ITS | Clinical Summary ---
Author Organization [facility] Address [address], [address] [address] Phone Care Team Providers Care International Broadcast Music Librarian Name Role Phone Deacon Karlo WADE Primary Care Provider [phone] Allergies Active Allergy Reactions Criticality Noted Date Comments Iodinated Contrast Media Swelling 06/14/2015 Medications levothyroxine (SYNTHROID) 75 MCG TabletIndication s:Hypothyroidism Take 75 mcg by mouth daily. Indications: Underactive Thyroid Active ciprofloxacin (CILOXAN) 0.3 % SolutionIndicati ons:Chronic otitis externa of both ears, unspecified type 4gtt AU BID 15 mL 0 6 Active clotrimazole-bet amethasone (LOTRISONE) 1-0.05 % CreamIndications :Dermatitis rub well into affected skin of both ears twice daily 15 g 0 6 Active Family History Medical History Relation Name Comments Diabetes Mother Elevated Lipids Mother Relation Name Status Comments Mother Alive Social History Tobacco Use Types Packs/Day Years Used Date Smoking Tobacco: Every Day Cigarettes 0.5 35 Smokeless Tobacco: Never Alcohol Use Standard Drinks/Week Comments No 0 (1 standard drink = 0.6 oz pur e alcohol) Comments No Sex and Gender Information Value Date Recorded Sex Assigned at Not on file Legal Sex Female 12:10 AM CDT Gender Identity Not on file Sexual Orientation Not on file Occupation Industry Job Start Date 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 End 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 on file Not on file Not o n file Last Filed Vital Signs Vital Sign Reading Time Taken Comments Blood Pressure 122/84 06/14/2015 1:14 PM SUPERVISOR WELDING EQUIPMENT REPAIRER Pulse 76 06/14/2015 1:14 PM SUPERVISOR WELDING EQUIPMENT REPAIRER Temperature - - Respiratory Rate - - Oxygen Saturation - - Inhaled Oxygen Concentration - - Weight 59.6 kg (131 lb 6.4 oz) 06/14/2015 1:14 P M SUPERVISOR WELDING EQUIPMENT REPAIRER Height 160 cm (5' 3 ) 06/14/2015 1:14 PM SUPERVISOR WELDING EQUIPMENT REPAIRER Body Mass Index 23.28 06/14/2015 1:14 PM SUPERVISOR WELDING EQUIPMENT REPAIRER Plan of Treatment Health Maintenance Due Date Last Done Comments Hepatitis C Virus (HCV) Screening 1964 TdaP Immunization 1964 Pneumococcal Immunization Co mbined (1 of 2 - PCV) 1970 Pap Smear 1985 Cervical Cancer Screening (CCS) 1994 HPV/Cotest 1994 Colonoscopy 2009 Colorectal Cancer Screening 2009 Cologuard 2014 Immunochemical Fecal Occult Blood 2014 Mammogram 2014 Pneumococcal Immunization (5 0+ years) (1 of 1 - PCV) 2014 Zoster Immunization (1 of 2) 2014 Influenza Immunization (#1) 2024 SARS-COV-2 Immunization ( season) 2024 Respiratory Syncytial Virus (RSV) Immunization (Adult) (1 - 1-dose 75+ series) 2039 Hepatitis B Immunization Aged Out No longer eligible based on patient's age to complete this topic Meningococcal Immunization (ACWY) Aged Out No longer eligible based on patient's age to complete this topic Rotavirus Immunization Aged Out No lo nger eligible based on patient's age to complete this topic Insurance [place]ICAID [place] Care Teams International Broadcast Music Librarian Relationship Specialty Start Date End Date Karlo Worthy, [facility] [address] [place] [address] PCP - General Physician Health Safety Engineer 06/14/15
--- NOTE | 2024-10-11 08:20 | ECG_ITS ---
Test Date: 2024-10-11 08:23:54 Measurements Intervals [place] Rate: 65 P: 56 UT: 156 QRS: 56 QRSD: 84 T: 49 QT: 404 QTc: 423 Interpretive Statements SINUS RHYTHM NONSPECIFIC T-WAVE ABNORMALITY ABNORMAL ECG No previous ECG available for comparison Electronically Signed On 10-11-2024 13:32:06 CDT by Rahul Miranda M.D.
[2024-10-11 08:39] LABS: Basophils Absolute Auto 0.1 K/mm3 (0.0-0.1); Basophils Percent Auto 1.7 % (0.2-1.2); Eosinophils Absolute Auto 0.4 K/mm3 (0-0.3); Hemoglobin 13.5 g/dL (12.0-15.0); Immature Granulocyte Absolute 0.02 K/mm3 (0.00-0.031); Immature Granulocyte Percent A 0.3 % (0-0.5); Lymphocytes Absolute Auto 2.74 K/mm3 (0.9-3.2); Lymphocytes Percent Auto 36.7 % (18.3-44.2); Mean Corpuscular HGB Conc 32.9 g/dl (32-36); Mean Corpuscular Hemoglobin 29.9 pg (26-34); Mean Corpuscular Volume 90.7 fl (80-100); Mean Platelet Volume 10.3 fl (7.4-10.4); Monocytes Absolute Auto 0.4 K/mm3 (0.1-0.6); Neutrophils Absolute Auto 3.8 K/mm3 (1.3-6.7); Neutrophils Percent Auto 51.3 % (45.5-73.1); Platelet Count Result 194 k/mm3 (150-375); Red Blood Count 4.52 M/mm3 (4.2-5.4); Red Cell Distribution Width 13.6 % (11.5-14.5); White Blood Count 7.5 K/mm3 (4.5-10.0)
[2024-10-11 08:50] LABS: Alanine Aminotransferase 34 U/L (6-35); Albumin Level 4.7 g/dL (3.5-5.1); Alkaline Phosphatase 59 U/L (38-126); Anion Gap 8 mmol/L (4-12); Aspartate Amino Transferase 62 U/L (14-36); Bilirubin,Total 0.9 mg/dL (0.2-1.3); Blood Urea Nitrogen 13 mg/dL (7-17); Calcium 8.6 mg/dL (8.4-10.2); Carbon Dioxide 27 mmol/L (22-30); Chloride 106 mmol/L (98-107); Estimated CRCL calculation 41 ml/min; Estimated Glomerular Filt Rate 52; Glucose 99 mg/dL (65-110); Potassium 3.6 mmol/L (3.4-5.0); Sodium 141 mmol/L (137-145)
[2024-10-11 08:59] LABS: INR 0.9; Prothrombin Time 12.1 Seconds (11.1-14.7)
[2024-10-11 09:00] LABS: Partial Thromboplastin Time 30.6 Seconds (22.3-36.8)
[2024-10-11 09:02] LABS: Troponin I < 0.012 ng/mL (0.000-0.034)
--- OUTSIDE RECORDS SUMMARY | 2024-10-11 09:05 | XMS_ITS | Clinical Summary ---
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 Not on file Not o n file Last Filed Vital Signs Vital Sign Reading Time Taken Comments Blood Pressure 122/84 06/14/2015 1:14 PM COUNTY DEMONSTRATOR Pulse 76 06/14/2015 1:14 PM COUNTY DEMONSTRATOR Temperature - - Respiratory Rate - - Oxygen Saturation - - Inhaled Oxygen Concentration - - Weight 59.6 kg (131 lb 6.4 oz) 06/14/2015 1:14 P M COUNTY DEMONSTRATOR Height 160 cm (5' 3 ) 06/14/2015 1:14 PM COUNTY DEMONSTRATOR Body Mass Index 23.28 06/14/2015 1:14 PM COUNTY DEMONSTRATOR Plan of Treatment Health Maintenance Due Date [...] this topic Insurance MEDICAID [place] Care Teams Funeral Professional Relationship Specialty Start Date End Date Karlo Worthy, [facility] [address] [place] [address] PCP - General Physician Assistant Film Editor 06/14/15
--- OUTSIDE RECORDS SUMMARY | 2024-10-11 09:05 | XMS_ITS | Clinical Summary ---
Author Organization [facility] Address [address] [place] [address] Care Team Providers Care Nursing Scheduler Name Role Phone Luc Conde DO Primary Care Provider [phone] Allergies Active Allergy Reactions Criticality Noted Date [...] Department Care Team Description 07/10/2024 11:59 PM CHANNEL LIP WETTER Anesthesia Event [facility] [address] [place] [address] Carlota Guzmán CRNA from Last 3 Months [...] on file Legal Sex Female 2:47 PM CHANNEL LIP WETTER Gender Identity Not on file Sexual Orientation Not on file Last Filed Vital Signs Vital Sign Reading Time Taken Comments Blood Pressure 114/92 05/25/2024 1:53 PM CHANNEL LIP WETTER Pulse 65 05/25/2024 1:53 PM CHANNEL LIP WETTER Temperature 36.2 C (97.2 F) 05/25/2024 12:37 PM CHANNEL LIP WETTER Respiratory Rate 18 05/25/2024 12:37 PM CHANNEL LIP WETTER Oxygen Saturation 100% 05/25/2024 1:53 PM CHANNEL LIP WETTER Inhaled Oxygen Concentration - - Weight 61.2 kg (135 lb) 07/09/2024 11:13 AM CHANNEL LIP WETTER Height 160 cm (5' 3 ) 05/15/2024 12:18 PM CHANNEL LIP WETTER Body Mass Index 23.91 05/15/2024 12:18 PM CHANNEL LIP WETTER Plan of Treatment Health Maintenance Due Date [...] this topic Medical Devices Implanted Type Area Upholsterer Inside Device Identifier Shelf Expiration Date Model / Serial / Lot Clareon Iol Aspheric Uv Absorbing Iol Implanted:Qty: 1 on 05/25/2024 by Logan Barkley MD at [facility] Right: Eye 04/09/2027 / [id number] / Care Teams Nursing Scheduler Relationship Specialty Start Date End Date Luc Conde DO [address] [place] [address] PCP - General FAMILY PRACTICE 05/25/24
--- NOTE | 2024-10-11 09:08 | ED_ITS ---
HPI - Neuro Symptoms/Deficit General Chief Complaint: Neuro Symptoms/Deficit Stated Complaint: slurred speech, R face droop,CAT since last night Time Seen by Provider: 10/11/24 08:52 Source: patient and family Mode of arrival: ambulatory Limitations: other (Bolivian as 2nd language but speaks fluently) History of Present Illness HPI Narrative: Patient presents with right-sided facial droop and slurred speech. Symptoms started yesterday approximately 5:00 [address] while [address]. She also has a frontal headache. She is experiencing retroauricular pain. She has a primary care physician. She has an problem manager through [employer] in [place] and has prevoiusly had surgery in her right eye; has an appointment with her problem manager in October. She does note that she is under some stress. While she tried to drink coffee she knows that she spilled it because it came out of her mouth unintentionally. She notes subjective weakness and pain in her right upper extremity once her other symptoms had been going on for awhile. No hearing changes. Patient notes that she is unable to fully close her right eye. History of eczema in external auditory canals bilaterally. Has been experiencing facial numbness/spasm on right side. Has noticed taste sensation changes on right side of tongue. Had previously seen a neurologist for memory issues but insurance issues. Also has carpal tunnel. Related Data Allergies Allergy/AdvReac Type Severity Reaction Status Date / Time iodine Allergy Severe Swelling Verified 10/11/24 08:32 ketorolac (From Toradol) Allergy Severe abdominal Verified 10/11/24 08:31 pain PMFSH Past Medical History Medical History Eczema of both external ears Ulnar neuropathy Hearing loss Carpal tunnel syndrome Migraine GERD (gastroesophageal reflux disease) Thyroid nodule Hypothyroidism Nicotine dependence RIA (generalized anxiety disorder) Asthma Surgical History Surgical History History of cholecystectomy Family History Family History Mother Diabetes mellitus Other Depression Family history of coronary artery disease Family history of migraine headaches Family history of type 2 diabetes mellitus Hypertension Social History Social History Social History: Tagalog primary language; fluent in Bolivian Smoking packs per day: 0.5 Smoking cigarettes per day: 10.0 Years smoked: 25 Smoking pack-years: 12.50 Smoking status: Former smoker Tobacco type: cigarettes Lack of Transportation: No Lack of Food: Sometimes True Current Housing: I Have Housing Concerned About Future Housing: Decline to Answer Difficulty Paying Gas/Electric Bills: YES Difficulty Paying for Meds: No Currently Unemployed: Decline to Answer Education: Grade School Difficulty w/ Childcare or Family Care: Decline to Answer Living arrangements: with family Additional living arrangements comments: . Gender identity (if verbalized by the patient): Female Exam 2 Narrative: GENERAL: Well-appearing, well-nourished, and in no acute distress. HEAD: Normocephalic, atraumatic. EYES: Non injected, non icteric. Extraocular movements horizontally intact and normal. No visual loss in all visual brar. ENT: Nares clear, no rhinorrhea or epistaxis. Mild eczema/rash at external auditory canals bilaterally. Scant cerumen appreciated bilaterally but not impacted. Able the easily visualize bilateral tympanic membranes which are normal pearly bello. No vesicular lesions. Gross auditory acuity intact. Patient experiencing right retroauricular pain but without obvious abnormality - no pinnae protrusion or tenderness to palpation/evidence of mastoiditis NECK: Supple. CHEST: Speaking in full sentences. No respiratory distress. HEART: Regular rate and rhythm. . ABDOMEN: Soft, nondistended. EXTREMITIES: Normal range of motion. No lower extremity edema. SKIN: Warm, dry, no rash. NEURO: No focal deficits. Alert and oriented x3. Answers questions appropriately. Knowledgeable about health history. Follows commands. Patient has partial paralysis on the right side with inability to smile on the right causing smile asymmetry. Unable to fully close eye on the right. Asymmetry when attempting to furrowed brow, unable to fully do so on the right. PSYCH: Normal mood and affect. Course Vital Signs Vital signs: Vital Signs Temperature 98.0 F 10/11/24 08:12 Pulse Rate 67 10/11/24 08:12 Respiratory Rate 17 10/11/24 08:12 Blood Pressure 161/85 H 10/11/24 08:12 Pulse Oximetry 99 10/11/24 08:12 Oxygen Delivery Room Air 10/11/24 08:12 Temperature 98.0 F 10/11/24 08:12 Pulse Rate 57 L 10/11/24 10:01 Respiratory Rate 13 10/11/24 10:01 Blood Pressure 134/87 10/11/24 10:01 Pulse Oximetry 99 10/11/24 10:01 Oxygen Delivery Room Air 10/11/24 08:12 MDM - Neuro Symptoms/Deficit MDM Narrative Medical decision making narrative: This is a 59 year old female who presents to the emergency department with acute neuro deficits including slurred speech and right facial droop. Last known well is 1700 on 10/10/24. The patient is protecting their airway which is patent. In the emergency department she is afebrile vital signs notable for hypertension. Protocol is initiated from triage. An IV is established by nursing staff blood work sent to the lab for evaluation. An EKG will be performed. NIHSS was evaluated per below. NIHSS Level Of consciousness: 0 Month and age:0 Follows commands:0 Gaze palsy:0 Visual brar:0 Facial palsy: 2 Left arm motor drift: 0 Right arm motor drift:0 Left leg motor drift:0 Right leg motor drift:0 Limb ataxia:0 Sensation:0 Aphasia:0 Dysarthria: 1 Extinction: 0 Total: 3 DIFFERENTIAL DIAGNOSES This is clearly Guzmán's palsy based on unilateral facial paralysis on the right which spares the forehead, inability to raise eyebrow/close eye on affected side and drooping angle of the mouth. In addition, she notes alterations in taste, subjective feelings of facial numbness/spasms without objective findings, retroauricular pain. Considered Stroke (CVA / TIA) as well as mimics including but not limited to: migraines, hypoglycemia, seizures/Regulo's paralysis, sepsis/severe infections in patients with prior strokes (e.g. recrudescence), syncope, brain masses, transient global amnesia, panic attack/hyperventilation, and conversion disorders. Ear exam does not support ear infection orRamsay Jacobs syndrome. Patient informed about why the diagnosis of Guzmán's palsy is made and she verifies understanding. We discussed the management of this as well as the importance of protecting the eye. She is already established with an problem manager. Also advised follow-up with primary care physician as needed and return to the emergency department with new or worsening symptoms. She is given 1st dose of valacyclovir as well as 1st dose of steroid while in the emergency department with the rest of the course prescribed. Lab Data Attestation: I reviewed the patient's lab results. Lab results narrative: CBC largely unremarkable except for mild abnormalities in differential Isolated AST elevation. Creatinine has ranged and is slightly higher today but not significantly; generally normal renal function Troponin normal 10/11/24 08:33 10/11/24 08:33 Labs: Lab Results 10/11/24 Range/Units 08:33 WBC 7.5 (4.5-10.0) K/mm3 RBC 4.52 (4.2-5.4) M/mm3 Hgb 13.5 (12.0-15.0) g/dL Hct 41.0 (37.0-47.0) % MCV 90.7 (80-100) fl MCH 29.9 (26-34) pg MCHC 32.9 (32-36) g/dl RDW 13.6 (11.5-14.5) % Plt Count 194 (150-375) k/mm3 MPV 10.3 (7.4-10.4) fl Immature Gran % (Auto) 0.3 (0-0.5) % Neut % (Auto) 51.3 (45.5-73.1) % Lymph % (Auto) 36.7 (18.3-44.2) % Travis % (Auto) 5.0 (2.6-8.5) % Eos % (Auto) 5.0 H (0-4.4) % Baso % (Auto) 1.7 H (0.2-1.2) % Lymph # (Auto) 2.74 (0.9-3.2) K/mm3 Travis # (Auto) 0.4 (0.1-0.6) K/mm3 Eos # (Auto) 0.4 H (0-0.3) K/mm3 Baso # (Auto) 0.1 (0.0-0.1) K/mm3 Abs Immat Gran (auto) 0.02 (0.00-0.031) K/mm3 Absolute Neuts (auto) 3.8 (1.3-6.7) K/mm3 Absolute Nucleated RBC 0.000 (0.0-0.012) K/mm3 Nucleated RBC % 0.0 (0.0-0.2) % PT 12.1 (11.1-14.7) Seconds INR 0.9 APTT 30.6 (22.3-36.8) Seconds Sodium 141 (137-145) mmol/L Potassium 3.6 (3.4-5.0) mmol/L Chloride 106 (98-107) mmol/L Carbon Dioxide 27 (22-30) mmol/L Anion Gap 8 (4-12) mmol/L BUN 13 (7-17) mg/dL Creatinine 1.07 H (0.7-1.0) mg/dL Estim Creat Clear Calc 41 ml/min Estimated GFR 52 L (59 - ) Glucose 99 (65-110) mg/dL Calcium 8.6 (8.4-10.2) mg/dL Total Bilirubin 0.9 (0.2-1.3) mg/dL AST 62 H (14-36) U/L ALT 34 (6-35) U/L Alkaline Phosphatase 59 (38-126) U/L Troponin I < 0.012 (0.000-0.034) ng/mL Total Protein 8.0 (6.3-8.2) g/dL Albumin 4.7 (3.5-5.1) g/dL Imaging Data Radiologist's impression: Impressions Chest X-Ray 10/11/24 09:10 Impression: Normal chest. ECG Data EKG #1: Attestation: I personally reviewed and interpreted this ECG as follows: ECG completion date: 10/11/24 ECG completion time: 08:23 Interpretation: Normal sinus rhythm at a rate of 65 beats per minute. OR interval 156. QRS 84. QT/QTC 4 04/416. Good R-wave progression across the precordial leads. No T- wave inversions. Discharge Plan Discharge Clinical Impression: Right-sided Guzmán's palsy, Elevated AST (SGOT) Patient Disposition: Home Condition: Stable Instructions: Antibiotic Form, Guzmán Palsy (ED) Additional Instructions: As we discussed, you have Guzmán's palsy. If treated, most patients recover completely although some continued to have facial weakness. For eye protection, use artificial tears every hour while awake. Apply ophthalmic ointment at night and tape your eye shut using skin tape. Follow up with your problem manager through [facility] for monitoring of the affected cornea. Take the course of steroids. Follow-up with primary care physician. Return to the emergency department with any new or worsening symptoms. Patient Language: Bolivian Prescriptions: New Artificial Tears (PF) Dropperette 1 drp RIGHT EYE 4-6XD PRN (Reason: dry eye(s)) Qty: 32 0RF sodium chloride [[place]] 5 % ointment 1 applic EACH EYE HS Qty: 3.5 0RF prednisone 20 mg tablet 60 mg PO DAILY 6 Days Qty: 18 0RF Rx Instructions: start 10/12 (received first dose in ED 10/11); take before 9am if possible valacyclovir 500 mg tablet 1,000 mg PO TID 7 Days Qty: 39 0RF Rx Instructions: received first dose in ED 10/11/ AM No Action famotidine 40 mg tablet 40 mg PO DAILY Qty: 90 0RF fluoxetine 40 mg capsule 40 mg PO DAILY Qty: 90 0RF triamcinolone acetonide 0.5 % ointment 1 applic topical DAILY Qty: 15 0RF fluticasone propionate 50 mcg/actuation spray,suspension See Rx Instructions .ROUTE .COMPLEX Qty: 16 0RF Dose Instruction: USE ONE SPRAY IN EACH NOSTRIL DAILY Rx Instructions: USE ONE SPRAY IN EACH NOSTRIL DAILY omeprazole 40 mg capsule,delayed release(DR/EC) See Rx Instructions .ROUTE .COMPLEX Qty: 90 0RF Dose Instruction: TAKE ONE CAPSULE BY MOUTH DAILY Rx Instructions: TAKE ONE CAPSULE BY MOUTH DAILY montelukast 10 mg tablet See Rx Instructions .ROUTE .COMPLEX Qty: 90 0RF Dose Instruction: TAKE ONE TABLET BY MOUTH DAILY Rx Instructions: TAKE ONE TABLET BY MOUTH DAILY Spiriva Respimat 2.5 mcg/actuation mist See Rx Instructions .ROUTE .COMPLEX Qty: 4 0RF Dose Instruction: INHALE TWO PUFFS BY MOUTH DAILY Rx Instructions: INHALE TWO PUFFS BY MOUTH DAILY tizanidine 4 mg tablet See Rx Instructions .ROUTE .COMPLEX Qty: 30 0RF Dose Instruction: TAKE ONE TABLET BY MOUTH THREE TIMES A DAY NEEDED Rx Instructions: TAKE ONE TABLET BY MOUTH THREE TIMES A DAY NEEDED alprazolam 0.5 mg tablet 0.5 mg PO DAILY Qty: 20 0RF trazodone 100 mg tablet See Rx Instructions .ROUTE .COMPLEX Qty: 90 0RF Dose Instruction: TAKE ONE TABLET BY MOUTH BEDTIME NEEDED FOR INSOMNIA Rx Instructions: TAKE ONE TABLET BY MOUTH BEDTIME NEEDED FOR INSOMNIA Nurtec ODT 75 mg tablet,disintegrating 75 mg PO .q48 PRN (Reason: migraine headache) Qty: 10 0RF Rx Instructions: as a single dose levothyroxine 25 mcg tablet See Rx Instructions .ROUTE .COMPLEX Qty: 90 0RF Dose Instruction: TAKE ONE TABLET BY MOUTH DAILY Rx Instructions: TAKE ONE TABLET BY MOUTH DAILY atorvastatin 20 mg tablet See Rx Instructions .ROUTE .COMPLEX Qty: 30 5RF Dose Instruction: TAKE ONE TABLET BY MOUTH DAILY Rx Instructions: TAKE ONE TABLET BY MOUTH DAILY albuterol sulfate 90 mcg/actuation HFA aerosol inhaler See Rx Instructions .ROUTE .COMPLEX Qty: 8.5 0RF Dose Instruction: INHALE ONE PUFF EVERY FOUR HOURS NEEDED FOR SHORTNESS OF BREATH OR WHEEZING Rx Instructions: INHALE ONE PUFF EVERY FOUR HOURS NEEDED FOR SHORTNESS OF BREATH OR WHEEZING meloxicam 15 mg tablet 15 mg PO DAILY Qty: 20 0RF Follow-up/Referrals: Luc Conde DO [Primary Care Provider] - Stand Alone Forms: Work/School Release IP Time of Disposition: 09:44
[2024-10-11] MEDS: predniSONE 20 MG TABLET 60 MG PO (10:16)
[2024-10-11] MEDS: valACYclovir HCL 500 MG TABLET 1000 MG PO (10:16)
== END 2024-10-11 10:19 | disposition home or self-care (01) ==
PROVIDERS: Emergency Provider Student in an Organized Health Care Education/Training Program; PCP Family Medicine
DX: G51.0 Bell's palsy (principal); R74.01 Elevation of levels of liver transaminase levels; J45.909 Unspecified asthma, uncomplicated; E03.9 Hypothyroidism, unspecified; K21.9 Gastro-esophageal reflux disease without esophagitis; F41.1 Generalized anxiety disorder; Z87.891 Personal history of nicotine dependence; Z90.49 Acquired absence of other specified parts of digestive tract; R94.31 Abnormal electrocardiogram [ECG] [EKG]
CPT/HCPCS: 36415; 71045; 80053; 84484; 85025; 85610; 85730; 93005; 99284; A9270; J7512

== ENCOUNTER 2025-04-09 14:40 | Outpatient (CLI) | payer OTHER, SELFPAY ==
[2025-04-09 14:55] LABS: Hematocrit 39.4 % (35.0-49.0); Hemoglobin 12.8 g/dL (12.0-15.0); Immature Granulocyte Percent A 0.2 % (0.0-0.0); Lymphocytes Absolute Auto 2.23 K/mm3 (1.10-4.50); Mean Corpuscular HGB Conc 32.5 g/dL (32-36); Mean Corpuscular Hemoglobin 30.0 pg (27.0-31.0); Mean Corpuscular Volume 92.3 fL (78.0-102.0); Nucleated Red Blood Cells Absolute Auto 0.00 K/mm3 (0.00-0.00); Nucleated Red Blood Cells Perc 0.0 % (0-0.0); Platelet Count Result 177 K/mm3 (150-420); Red Blood Count 4.27 M/mm3 (4.20-5.40); White Blood Count 6.6 K/mm3 (4.8-10.8)
[2025-04-09 15:11] LABS: Alanine Aminotransferase 31 U/L (6-35); Albumin Level 4.9 g/dL (3.5-5.1); Alkaline Phosphatase 61 U/L (38-126); Anion Gap 10 mmol/L (4-12); Aspartate Amino Transferase 53 U/L (14-36); Blood Urea Nitrogen 17 mg/dL (7-17); Calcium 9.2 mg/dL (8.4-10.2); Carbon Dioxide 30 mmol/L (22-30); Chloride 104 mmol/L (98-107); Estimated Glomerular Filt Rate 52; Glucose 98 mg/dL (65-110); Osmolality Calculated 299 mOsm/kg (285-295); Potassium 3.9 mmol/L (3.4-5.0); Sodium 144 mmol/L (137-145); Total Protein 8.1 g/dL (6.3-8.2)
[2025-04-09 15:42] LABS: Thyroid Stimulating Hormone Reflex 57.100 uIU/mL (0.465-4.68)
[2025-04-09 16:17] LABS: Vitamin B12 427.0 pg/mL (239-931)
[2025-04-09 17:22] LABS: Free T4 Free Thyroxine Reflex 0.23 ng/dL (0.78-2.19)
--- OUTSIDE RECORDS SUMMARY | 2025-04-09 19:05 | XMS_ITS | Clinical Summary ---
Author Organization [facility] Address [address] [place] [address] Care Team Providers Care Deputy Sheriff Court Services Name Role Phone Luc Conde DO Primary Care Provider [phone] Allergies Active Allergy Reactions Criticality Noted Date [...] (shortness of breath). Please provide assembled. Active Social History Tobacco Use Types Packs/Day Years Used Date Smoking Tobacco: Every Day Cigarettes 0.3 41.9 Started: 1983 Smokeless Tobacco: Never Tobacco Cessation:Ready to Q uit: Not Asked; Counseling Given: Not Answered Comments:Quits and restarts smoking off and on Alcohol Use Standard Drinks/Week Comments Never 0 (1 standard drink = 0.6 oz pur e alcohol) Comments No Sex and Gender Information Value Date Recorded Sex Assigned at Not on file Legal Sex Female 2:47 PM CENTRIFUGAL CHILLER TECHNICIAN Gender Identity Not on file Sexual Orientation Not on file Last Filed Vital Signs Vital Sign Reading Time Taken Comments Blood Pressure 114/92 05/25/2024 1:53 PM CENTRIFUGAL CHILLER TECHNICIAN Pulse 65 05/25/2024 1:53 PM CENTRIFUGAL CHILLER TECHNICIAN Temperature 36.2 C (97.2 F) 05/25/2024 12:37 PM CENTRIFUGAL CHILLER TECHNICIAN Respiratory Rate 18 05/25/2024 12:37 PM CENTRIFUGAL CHILLER TECHNICIAN Oxygen Saturation 100% 05/25/2024 1:53 PM CENTRIFUGAL CHILLER TECHNICIAN Inhaled Oxygen Concentration - - Weight 61.2 kg (135 lb) 07/09/2024 11:13 AM CENTRIFUGAL CHILLER TECHNICIAN Height 160 cm (5' 3) 05/15/2024 12:18 PM CENTRIFUGAL CHILLER TECHNICIAN Body Mass Index 23.91 05/15/2024 12:18 PM CENTRIFUGAL CHILLER TECHNICIAN Plan of Treatment Health Maintenance Due Date [...] of 2) 2014 COVID-19 Vaccine ( - 2024-2 6 season) 2025 Influenza Adult (#1) 2025 RSV Immunization or 60+ Years (1 - 1-dose 75+ series) 2039 Hepatitis A Vaccines Aged Out No long er eligible based on patient's age to complete this topic Meningococcal B Vaccine Aged Out No l onger eligible based on patient's age to complete this topic Meningococcal Vaccine Aged Out No adam ursula eligible based on patient's age to complete this topic RSV Immunizations Under 20 Months Aged Out No longer eligible based on patient's age to complete this topic Medical Devices Implanted Type Area Decator Operator Device Identifier Shelf Expiration Date Model / Serial / Lot [employer] Iol Aspheric Uv Absorbing Iol Implanted:Qty: 1 on 05/25/2024 by Logan Barkley MD at [facility] Right: Eye 04/09/2027 / [id number] / Care Teams Deputy Sheriff Court Services Relationship Specialty Start Date End Date Luc Conde DO [address] [place] [address] PCP - General FAMILY PRACTICE 05/25/24
--- OUTSIDE RECORDS SUMMARY | 2025-04-09 19:05 | XMS_ITS | Clinical Summary ---
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 [employer] Not on file Not on file Not o n file Last Filed Vital Signs Vital Sign Reading Time Taken Comments Blood Pressure 122/84 06/14/2015 1:14 PM MILL SUPERVISOR Pulse 76 06/14/2015 1:14 PM MILL SUPERVISOR Temperature - - Respiratory Rate - - Oxygen Saturation - - Inhaled Oxygen Concentration - - Weight 59.6 kg (131 lb 6.4 oz) 06/14/2015 1:14 P M MILL SUPERVISOR Height 160 cm (5' 3) 06/14/2015 1:14 PM MILL SUPERVISOR Body Mass Index 23.28 06/14/2015 1:14 PM MILL SUPERVISOR Plan of Treatment Health Maintenance Due Date Last Done Comments Hepatitis C Virus (HCV) Screening 1964 TdaP Immunization 1964 Pap Smear 1985 Cervical Cancer Screening (CCS) 1994 HPV/Cotest 1994 Cologuard 2009 Colonoscopy 2009 Colorectal Cancer Screening 2009 Immunochemical Fecal Occult Blood 2009 Pneumococcal Immunization (5 0+ years) (1 of 1 - PCV) 2014 Zoster Immunization (1 of 2) 2014 Influenza Immunization (#1) 2025 SARS-COV-2 Immunization ( - season) 2025 Respiratory Syncytial Virus (RSV) Immunization (Adult) (1 - 1-dose 75+ series) 2039 Hepatitis B Immunization Aged Out No longer eligible based on patient's age to complete this topic Human Papillomavirus (HPV) Immunization Aged Out No longer eligible b ased on patient's age to complete this topic Meningococcal Immunization (ACWY) Aged Out No longer eligible based on patient's age to complete this topic Rotavirus Immunization Aged Out No lo nger eligible based on patient's age to complete this topic Insurance [place]ICAID [place] Care Teams Copy Clerk Relationship Specialty Start Date End Date Karlo Worthy, [facility] [address] [place] [id number] PCP - General Physician Flame Cutter 06/14/15
[2025-04-13 08:08] LABS: ANA by IFA Rfx Titer/Pattern Positive (.)
[2025-04-13 13:45] LABS: Bilirubin,Total 1.0 mg/dL (0.2-1.3)
[2025-04-20 13:09] LABS: Arsenic, Blood 12 ug/L (0-9); Lead, Blood 1.5 ug/dL (0.0-3.4); Mercury, Blood 1.6 ug/L (0.0-14.9)
== END 2025-04-09 14:41 | disposition home or self-care (01) ==
PROVIDERS: PCP Family Medicine; Visit Provider Family Medicine
DX: G62.9 Polyneuropathy, unspecified (principal); E53.8 Deficiency of other specified B group vitamins; E03.9 Hypothyroidism, unspecified
CPT/HCPCS: 36415; 80053; 82175; 82607; 82746; 83655; 83825; 84439; 84443; 85025; 86038